=== PATIENT | male | born 1980 | race Caucasian/White ===

== ENCOUNTER 2016-11-10 09:32 | Observation (INO) ==
[2016-11-10] MEDS ORDERED: Aspirin 81 MG TAB.CHEW PO ONE (10:06)
--- NOTE | 2016-11-10 10:08 | Emergency Department Note ---
Disposition Clinical Impression: Chest pain Qualifiers: Chest pain type: unspecified Qualified Code(s): R07.9 - Chest pain, unspecified Disposition: Home, Self-Care Condition: Good Time of Disposition: 13:43 General Adult HPI - General Chief complaint: ED Chest Pain Stated complaint: Chest pain/ SOB Time Seen by Provider: 11/10/16 09:51 Source: patient Limitations: no limitations Nursing Notes Reviewed: Yes Vital Signs Reviewed: Yes - History of Present Illness HPI Narrative: Patient started having chest pain and he describes as sharp and of pressure to the left side of his chest this morning. It woke him from sleep. Shortness of breath with this. The pain does not radiate anywhere. Associated nausea or vomiting. Does have some mild lower extremity edema that has been going on for about a week. Pain Scale: 6 - Related Data Home Medications Medication Instructions Recorded Confirmed No Known Home Drugs 11/10/16 11/10/16 Allergies Allergy/AdvReac Type Severity Reaction Status Date / Time No Known Allergies Allergy Verified 11/10/16 09:33 All systems ED: reviewed and negative except as stated. Constitutional: Denies: fever, chills Cardiovascular: Reports: chest pain. Denies: palpitations, syncope Respiratory: Reports: dyspnea (Associated with the chest pain). Denies: cough Gastrointestinal: Denies: abdominal pain, nausea, vomiting, diarrhea, hematemesis, melena Genitourinary: Denies: urgency, dysuria, frequency Musculoskeletal: Denies: back pain, neck pain Integumentary: Denies: rash, abrasion Neurological: Denies: headache, weakness Past Medical History - Past Medical History Attestation: Yes The following information was validated with the patient. Source: patient Medical history: Reports: other Psychiatric history: Reports: no psych history - Social History Smoking Status: Never smoker Smokeless Tobacco Status: Yes Alcohol use: Reports: none Drug use: Reports: none Physical Exam - General Limitations: no limitations General appearance: alert, in no apparent distress - Head Head exam: atraumatic, normocephalic, normal inspection - Eye Eye exam: Present: normal appearance, PERRL, EOMI - ENT ENT exam: normal exam, normal oropharynx, mucous membranes moist - Neck Neck exam: Present: normal inspection, full ROM, trachea midline. Absent: tenderness, meningismus - Chest Chest inspection: Present: normal inspection, symmetric chest wall rise - Respiratory Respiratory exam: Present: normal lung sounds bilaterally. Absent: respiratory distress, accessory muscle use - Cardiovascular Cardiovascular exam: Present: regular rate, normal rhythm, normal heart sounds - Abdominal Exam Abdominal exam: Present: soft, Non-Tender, normal bowel sounds. Absent: tenderness, distention, guarding, rebound, rigidity, organomegaly - Extremities Exam Extremities exam: Present: normal inspection, full ROM, normal capillary refill , pedal edema (Mild to bilateral lower extremities.). Absent: tenderness - Back Exam Back exam: Present: normal inspection, full ROM, paraspinal tenderness (Lower lumbar spine.). Absent: CVA tenderness (R), CVA tenderness (L) - Neurological Exam Neurological exam: Present: alert, oriented X3 - Psychiatric Psychiatric exam: Present: normal affect, normal mood - Skin Skin exam: Present: warm, dry, intact, normal color. Absent: rash, cyanosis Course Course Narrative: Patient presenting to emergency department complaining of left-sided chest pain is sharp in nature that began this morning. He states it woke him from sleep. Also having associated shortness of breath and low back pain. He denies any nausea vomiting or diarrhea. States he does have high blood pressure and is chronically supposed be taking medication for this but does not. He only takes his medication when he "feels bad." He states his lower back started hurting him on Tuesday. This was 5 days ago. He thought that he had a urinary tract infection however the pain is still there. The pain gets worse whenever he takes a deep breath. Patient is an obese male resting in bed. He is smiling during exam. His lung sounds are clear heart sounds are normal his abdomen is soft and nontender. He denies any abdominal pain. He does not have any CVA tenderness on exam. He has some mild midline tenderness in his L3-L4 area. We will get a cardiac workup on palpation give him pain medication campos here. We will also provide him with aspirin. 7 nitroglycerin trial. He is agreeable to this. Patient states he has had a history of pericarditis and this feels similar. His EKG is normal. There are no ST elevations. - Reevaluation(s) Reevaluation #1: Patient's workup was unremarkable however patient's body habitus is large she has a history of pericarditis and his symptoms are very concerning for ACS. We will admit patient for further evaluation. D-dimer was normal. He had no EKG findings of ischemia at this time. Vital Signs Temperature 97.5 F L 11/10/16 09:33 Pulse Rate 78 11/10/16 09:33 Respiratory Rate 16 11/10/16 09:33 Blood Pressure 160/94 11/10/16 09:33 O2 Sat by Pulse Oximetry 97 11/10/16 09:33 Temperature 97.5 F L 11/10/16 09:33 Pulse Rate 76 11/10/16 11:37 Respiratory Rate 20 11/10/16 12:20 Blood Pressure 130/72 11/10/16 12:20 O2 Sat by Pulse Oximetry 98 11/10/16 11:37 Oxygen Delivery Oxygen Delivery Room Air Medical Decision Making - Medical Records Medical records reviewed: Yes I reviewed the patient's medical records. - Lab Data Lab results reviewed: Yes I reviewed the patient's lab results. Result diagrams: 11/10/16 10:20 11/10/16 10:20 Lab Results 11/10/16 11/10/16 11/10/16 Range/Units 10:20 10:20 10:20 WBC 6.4 (4.3-11.1) K/mcL RBC 4.97 (4.19-5.50) M/mcL Hgb 15.4 (12.9-16.9) g/dL Hct 45.6 (37.5-50.1) % MCV 91.8 (83.0-100.0) fL MCH 31.0 (28.0-33.3) pg MCHC 33.8 (31.6-35.5) g/dL RDW 12.3 (11.5-14.5) % Plt Count 190 (140-400) K/mcL MPV 10.7 (9.4-12.4) fL Immature Gran % 0.3 (0-4) % Seg Neutrophils % 52.1 % Lymphocytes % 32.7 % Monocytes % 10.0 % Eosinophils % 4.1 % Basophils % 0.8 % Neutrophils # 3.3 (1.6-8.9) K/mcL Lymphocytes # 2.1 (0.6-4.6) K/mcL Monocytes # 0.6 (0.0-1.3) K/mcL Eosinophils # 0.3 (0.0-0.6) K/mcL Basophils # 0.1 (0.0-0.2) K/mcL PT 13.0 H (9.4-12.1) Seconds INR 1.2 APTT 31.4 (26.0-36.0) Seconds D-Dimer 228 (0-500) ng/mLFEU Sodium 140 (136-145) mEq/L Potassium 4.5 (3.5-4.5) mEq/L Chloride 107 (98-109) mEq/L Carbon Dioxide 27 (19-29) mEq/L BUN 11 (8-26) mg/dL Creatinine 0.84 (0.72-1.25) mg/dL Est GFR ( Amer) > 60 (> 60) Est GFR (Non-Af Amer) > 60 (> 60) BUN/Creatinine Ratio 13 (6-26) Glucose 112 H (70-99) mg/dL Calculated Osmolality 290 (280-300) Calcium 9.4 (8.6-10.8) mg/dL Troponin I (0-0.03) ng/mL 11/10/16 Range/Units 10:20 WBC (4.3-11.1) K/mcL RBC (4.19-5.50) M/mcL Hgb (12.9-16.9) g/dL Hct (37.5-50.1) % MCV (83.0-100.0) fL MCH (28.0-33.3) pg MCHC (31.6-35.5) g/dL RDW (11.5-14.5) % Plt Count (140-400) K/mcL MPV (9.4-12.4) fL Immature Gran % (0-4) % Seg Neutrophils % % Lymphocytes % % Monocytes % % Eosinophils % % Basophils % % Neutrophils # (1.6-8.9) K/mcL Lymphocytes # (0.6-4.6) K/mcL Monocytes # (0.0-1.3) K/mcL Eosinophils # (0.0-0.6) K/mcL Basophils # (0.0-0.2) K/mcL PT (9.4-12.1) Seconds INR APTT (26.0-36.0) Seconds D-Dimer (0-500) ng/mLFEU Sodium (136-145) mEq/L Potassium (3.5-4.5) mEq/L Chloride (98-109) mEq/L Carbon Dioxide (19-29) mEq/L BUN (8-26) mg/dL Creatinine (0.72-1.25) mg/dL Est GFR ( Amer) (> 60) Est GFR (Non-Af Amer) (> 60) BUN/Creatinine Ratio (6-26) Glucose (70-99) mg/dL Calculated Osmolality (280-300) Calcium (8.6-10.8) mg/dL Troponin I 0.00 (0-0.03) ng/mL - Radiology Data Radiology results reviewed: Yes I reviewed the patient's radiology results. Chest X-Ray 11/10/16 10:06 IMPRESSION: No acute cardiopulmonary abnormality. D/ / Ashley Suresh MD / Ashley Suresh MD Interpreting Provider: Ashley Suresh MD - EKG Data EKG #1 EKG attestation: Yes I reviewed and interpreted this EKG. EKG results narrative: Normal sinus rhythm at a rate of 78. NH interval is 148. QRS duration is 87. QT is 353. QTC is 386. No signs of acute ischemia. No old to compare to. Attestation Statement - Attestation Attestation: I examined this patient and my medical decision-making was reviewed with the Resident Physician. I agree with the documented findings, disposition and treatment plan as described except to the extent set forth below. In summary 35 -year-old male with multiple risk factors and history of pericarditis presenting with atypical chest pain symptoms. He does have mild amounts of exertional dyspnea. Plan to admit to the hospital, EKG was normal, aspirin and nitroglycerin trial administered, bedside echocardiogram to rule out pericardial effusion. Patient be admitted.
[2016-11-10 10:36] LABS: Basophils # 0.1 K/mcL (0.0-0.2); Basophils % 0.8 %; Eosinophils # 0.3 K/mcL (0.0-0.6); Eosinophils % 4.1 %; Hematocrit 45.6 % (37.5-50.1); Hemoglobin 15.4 g/dL (12.9-16.9); Immature Granulocytes % 0.3 % (0-4); Lymphocytes # 2.1 K/mcL (0.6-4.6); Lymphocytes % 32.7 %; Mean Corpuscular HGB Conc 33.8 g/dL (31.6-35.5); Mean Corpuscular Volume 91.8 fL (83.0-100.0); Mean Platelet Volume 10.7 fL (9.4-12.4); Monocytes # 0.6 K/mcL (0.0-1.3); Neutrophils # 3.3 K/mcL (1.6-8.9); Platelet Count 190 K/mcL (140-400); Red Blood Count 4.97 M/mcL (4.19-5.50); Red Cell Distribution Width 12.3 % (11.5-14.5); Segmented Neutrophils % 52.1 %
[2016-11-10 10:41] LABS: INR 1.2
[2016-11-10 10:43] LABS: Activated Partial Thrombo Time 31.4 Seconds (26.0-36.0)
[2016-11-10 10:48] LABS: BUN/Creatinine Ratio 13 (6-26); Blood Urea Nitrogen 11 mg/dL (8-26); Calcium 9.4 mg/dL (8.6-10.8); Carbon Dioxide 27 mEq/L (19-29); Chloride 107 mEq/L (98-109); Glucose 112 mg/dL (70-99); Osmolality,Calculated 290 (280-300); Potassium 4.5 mEq/L (3.5-4.5); Sodium 140 mEq/L (136-145); eGFR For African Americans > 60 (> 60); eGFR For Non-African Americans > 60 (> 60)
[2016-11-10] MEDS ORDERED: *HR* Morphine 2 MG/ML SYRINGE IVP ONE (10:58)
[2016-11-10] MEDS ORDERED: Nitroglycerin 0.4 MG TAB.SUBL SL PRN (11:23)
[2016-11-10] MEDS ORDERED: Naloxone 0.4 MG/ML INJ IVP PRN (13:09)
[2016-11-10] MEDS ORDERED: Ondansetron 4 MG/2 ML VIAL IVP PRN (13:09)
[2016-11-10] MEDS ORDERED: *HR* Metoprolol 5 MG/5 ML VIAL IVP PRN (13:58)
--- NOTE | 2016-11-10 14:05 | Internal Med History&Physical ---
Date of Encounter: 11/10/16 Time of Encounter: 13:59 Assessment and Plan (1) Chest pain Current visit: Yes Status: Acute Given family history and clinical presentation, will admit to rule out ACS serial TNI f/u 2D echo nitroglycerin SL prn chest pain morphine 2mg IV q4h prn severe pain ASA, Statin O2 supplementation as needed nuclear stress test in am consider cardiology evaluation if nuclear stress test or echo findings are abnormal EKG: NSR at 78bpm monitor BP, Lopressor 5mg IV q6h prn SBP>140 tele monitoring NPO after midnight Med compliance counseling provided Qualifiers: Chest pain type: unspecified Qualified Code(s): R07.9 - Chest pain, unspecified (2) DVT prophylaxis Current visit: Yes Status: Acute Heparin SQ (3) Tobacco abuse Current visit: Yes Status: Chronic tobacco cessation counseling provided patient not ready to quit refused nicotine replacement therapy (4) Morbid obesity with BMI of 50.0-59.9, adult Current visit: Yes Status: Chronic (5) Medical non-compliance Current visit: Yes Status: Chronic Internal Medicine - H&P: HPI Chief complaint: Chest pain Admitted From: Home Plans for Post Hospital Care: Home History of present illness: Mr. Carlos is a 35 year old male with PMH of pericarditis, morbid obesity presents to the ER for evaluation of chest pain. Patient describes the chest pain as localized substernal pressure like pain, as if someone was sitting on his chest, associated with shortness of breath. He states he was awoken from sleep at 4am due to the pain. He states taking a deep breath worsened the pain and nothing he did at home helped with the pain. Reports of having pericarditis a few years ago and states this pain was far worst than his pericarditis episode. States he was prescribed a few medications but has not been taking any medications for the last four months because he felt well. He reports of strong cardiac family history, with his dad having his first AR at age 40. Upon arrival to the ER, he received IV morphine which alleviated the chest pain. At this time, he is resting comfortably in bed and states his pain is almost resolved. He is eating lunch and denies any headache, sob, abd pain, n/v, fever , or chills at this time. Social history: chews tobacco Code status: Full code Past Med Surg Social Fam HX - Past Medical History Medical history: other Psychiatric history: no psych history - Past Surgical History Surgical History: appendectomy - Social History Smoking Status: Never smoker Smokeless Tobacco Status: Yes Alcohol use: none Drug use: none - Family History Father Hx Family Cardiac Disorders: Yes (Heart disease) Internal Medicine - H&P: Meds No Known Home Drugs 11/10/16 [History] 3 Allergy/AdvReac Type Severity Reaction Status Date / Time No Known Allergies Allergy Verified 11/10/16 09:33 All Systems PM: A 10-system review of systems was performed and is negative for pertinent findings except as documented above in the HPI. - Constitutional Constitutional: as per HPI - Constitutional Vitals: Temp Pulse Resp BP Pulse Ox 97.5 F L 76 20 130/72 98 11/10/16 09:33 11/10/16 11:37 11/10/16 12:20 11/10/16 12:20 11/10/16 11:37 General appearance: Present: cooperative, A&O X 3, morbidly obese, no acute distress, answers questions appropriately - Head Head exam: Present: atraumatic, normocephalic - Eye Eye exam: Present: conjuntiva pink, sclera anicteric - Respiratory Respiratory exam: Present: CTAB. Absent: accessory muscle use, rales, rhonchi, wheezes - Cardiovascular Cardiovascular exam: Present: RRR, +S1, +S2. Absent: diastolic murmur, gallop, rubs, systolic murmur - GI/Abdominal GI/Abdominal exam: Present: normal bowel sounds, soft, no peritoneal signs. Absent: distended, tenderness - Extremities Exam Extremities exam: Present: pedal edema, warm, radial pulses palpable and symmetrical. Absent: calf tenderness Internal Med - H&P Results - Labs CBC & Chem 7: 11/10/16 10:20 11/10/16 10:20
[2016-11-10] MEDS: *HR* Morphine 2 MG/ML SYRINGE IVP PRN ×2 (17:35→22:24)
[2016-11-10] MEDS: *HR* Heparin 5,000 UNIT/ML VIAL SQ SCH (22:25)
[2016-11-11] MEDS: *HR* Heparin 5,000 UNIT/ML VIAL SQ SCH ×3 (05:22→21:08)
[2016-11-11] MEDS ORDERED: Regadenoson 0.4 MG/5 ML SYRINGE IVP ONE (05:43)
[2016-11-11 06:10] LABS: Basophils # 0.1 K/mcL (0.0-0.2); Basophils % 0.7 %; Eosinophils # 0.3 K/mcL (0.0-0.6); Eosinophils % 4.4 %; Hematocrit 45.6 % (37.5-50.1); Hemoglobin 14.9 g/dL (12.9-16.9); Immature Granulocytes % 0.3 % (0-4); Lymphocytes # 2.6 K/mcL (0.6-4.6); Lymphocytes % 36.1 %; Mean Corpuscular HGB Conc 32.7 g/dL (31.6-35.5); Mean Corpuscular Hemoglobin 29.9 pg (28.0-33.3); Mean Corpuscular Volume 91.4 fL (83.0-100.0); Monocytes # 0.7 K/mcL (0.0-1.3); Monocytes % 9.4 %; Neutrophils # 3.6 K/mcL (1.6-8.9); Platelet Count 188 K/mcL (140-400); Red Blood Count 4.99 M/mcL (4.19-5.50); Red Cell Distribution Width 12.3 % (11.5-14.5); Segmented Neutrophils % 49.1 %
[2016-11-11 06:30] LABS: BUN/Creatinine Ratio 13 (6-26); Blood Urea Nitrogen 11 mg/dL (8-26); Calcium 8.9 mg/dL (8.6-10.8); Carbon Dioxide 29 mEq/L (19-29); Chloride 100 mEq/L (98-109); Chol/HDL Ratio 7.9 (0-4.9); Cholesterol 198 mg/dL (< 200); Glucose 110 mg/dL (70-99); HDL Cholesterol 25 mg/dL (40-59); LDL Cholesterol,Calculated 136 mg/dL (0-99); Magnesium 1.9 mg/dL (1.6-2.6); Osmolality,Calculated 288 (280-300); Phosphorous 4.3 mg/dL (2.3-4.7); Potassium 4.4 mEq/L (3.5-4.5); Sodium 139 mEq/L (136-145); Triglycerides 187 mg/dL (< 150); eGFR For African Americans > 60 (> 60); eGFR For Non-African Americans > 60 (> 60)
--- NOTE | 2016-11-11 10:20 | Internal Med Progress Note ---
Date of Encounter: 11/11/16 Time of Encounter: 10:17 - Assessment and plan (1) Chest pain Current Visit: Yes Status: Acute Assessment and plan: So far negative troponin high risk for ACS due to FH and Morbid obesity will f/u on Stress test 2D Echo - P No acute EKG changes cont ASA and Statin Will start him on Low dose B manoj his BP allows Counseled to quit smoking Qualifiers: Chest pain type: unspecified Qualified Code(s): R07.9 - Chest pain, unspecified (2) Morbid obesity with BMI of 50.0-59.9, adult Current Visit: Yes Status: Chronic Assessment and plan: Counseled to loose weight he might have sleep apnea too recommend to go for out pt sleep studies (3) HLD (hyperlipidemia) Current Visit: Yes Status: Acute Assessment and plan: Reviewed FLP - Elevated LDL Started him Lipitor Qualifiers: Qualified Code(s): E78.5 - Hyperlipidemia, unspecified (4) Tobacco abuse Current Visit: Yes Status: Chronic Assessment and plan: Counseled to quit smoking (5) DVT prophylaxis Current Visit: Yes Status: Acute Assessment and plan: on SQ heparin - Subjective Interval history: Mr. Carlos is a 35 year old male with PMH of pericarditis, morbid obesity presents to the ER for evaluation of chest pain. Patient describes the chest pain as localized substernal pressure like pain, as if someone was sitting on his chest, associated with shortness of breath. He states he was awoken from sleep at 4am due to the pain. Pt denied any more CP now. Denied any SOB. Denied any new complaints. - Constitutional Vitals: Temp Pulse Resp BP Pulse Ox 97.8 F 78 20 118/77 93 11/10/16 23:52 11/10/16 23:52 11/10/16 23:52 11/10/16 23:52 11/10/16 23:52 General appearance: Present: cooperative, A&O X 3, morbidly obese, no acute distress, answers questions appropriately - Head Head exam: Present: atraumatic, normal inspection - Respiratory Respiratory exam: Present: decreased breath sounds, wheezes. Absent: rales, respiratory distress, rhonchi - Cardiovascular Cardiovascular exam: Present: RRR, +S1, +S2. Absent: diastolic murmur, gallop, rubs, systolic murmur - GI/Abdominal GI/Abdominal exam: Present: normal bowel sounds, soft, no peritoneal signs. Absent: distended, tenderness - Extremities Exam Extremities exam: Absent: calf tenderness, pedal edema, tenderness - Psychiatric Psychiatric exam: Present: normal affect, normal mood Internal Medicine: Result - Labs CBC & Chem 7: 11/11/16 05:26 11/11/16 05:26 Labs: Short CBC 11/11/16 Range/Units 05:26 WBC 7.3 (4.3-11.1) K/mcL Hgb 14.9 (12.9-16.9) g/dL Hct 45.6 (37.5-50.1) % Plt Count 188 (140-400) K/mcL Neutrophils # 3.6 (1.6-8.9) K/mcL BMP 11/11/16 05:26 Sodium 139 Potassium 4.4 Chloride 100 Carbon Dioxide 29 BUN 11 Creatinine 0.85 Glucose 110 H Calcium 8.9 Cardiac Enzymes 11/10/16 11/10/16 11/11/16 Range/Units 13:57 19:03 01:05 Troponin I 0.01 0.00 0.01 (0-0.03) ng/mL - ABG Interpretation ABG results: PT/INR, D-dimer PT 13.0 Seconds (9.4-12.1) H 11/10/16 10:20 D-Dimer 228 ng/mLFEU (0-500) 11/10/16 10:20 Consult Discharge Plan - Plan Referrals: Geovanny Carroll MD [Primary Care Provider] -
[2016-11-11] MEDS: Aspirin 81 MG TAB.CHEW PO SCH (10:53)
[2016-11-11] MEDS: *HR* Morphine 2 MG/ML SYRINGE IVP PRN ×3 (11:12→21:05)
--- NOTE | 2016-11-11 18:12 | Electrocardiograph Report ---
[address] [address] Test Date: 2016-11-10 Pat Name: Armen Carlos Department: 104 Room: 3B Gender: M Ux Specialist: MSC : 1980 Requested By: Soha Florentino Order Number: [id number] Reading MD: Denita Rizzo Measurements Intervals [place] Rate: 78 P: 23 OK: 148 QRS: 48 QRSD: 87 T: 56 QT: 353 QTc: 386 Interpretive Statements SINUS RHYTHM EARLY REPOLARIZATION Electronically Signed On 11-11-2016 18:10:23 EDT by Denita Rizzo
[2016-11-12] MEDS: *HR* Heparin 5,000 UNIT/ML VIAL SQ SCH ×2 (08:26→13:44)
[2016-11-12] MEDS: Aspirin 81 MG TAB.CHEW PO SCH (08:27)
[2016-11-12] MEDS: *HR* Morphine 2 MG/ML SYRINGE IVP PRN (08:27)
--- NOTE | 2016-11-12 09:45 | Nuclear Medicine Stress Report ---
Regadenoson Nuclear 2 day Name: Armen Carlos Date of Study: 11/11/2016 Date: 1980 Ht: 68.0 in Medical Record#: [id number] Age: 35 Wt: 346.0 lb Gender: Male Order #: [id number] Location: [facility] Room: [facility] Supervising Provider: Jeanine Moreno CNP Reading Physician: Denita Rizzo DO Ordering Physician: Berta Aguilar CNP Primary Care Physician: None Stress Technologist: Claire Mendieta CAPACITY PLANNING ENGINEER, CCT Special Distribution Clerk: Marvel Tamayo Indications: Chest Pain Impression: Perfusion imaging was negative for ischemia or infarct. Pharmacologic ECG was negative for ischemia at the level of heart rate achieved. Gated EF = 68%. History: Hypertension Stress Test Summary: Stress Test Type: Pharmacologic Regadenoson 0.4mg/5ml given IV Baseline Information: Initial Heart Rate: 79 Blood Pressure: 128/94 Stress Information: Test Terminated Due to (primary): As per protocol Maximum Blood Pressure: 122/84 Maximum Heart Rate: 105 Percent Maximum Heart Rate Achieved: 57 Double Product: 30330 METS Reached: 1 Symptoms: Shortness of breath, No chest symptoms Nuclear Summary: SPECT myocardial perfusion imaging using Tc99m Sestamibi given intravenously was performed at rest and following cardiac stress testing. The resting images were obtained following initial dose of 35.8 mCi. Following stress an additional dose of 35.2 mCi was given at peak exercise or 30 seconds post regadenoson infusion. Medication Given: Time Medication Dose Units Route Findings: Stress Note * Resting ECG demonstrated normal sinus rhythm with early repolarization. * Pharmacologic stress ECG is negative for ischemia at level of heart rate achieved. * No arrhythmias were noted during stress. * Patient had no chest pain during stress. Hemodynamic responses * Normal hemodynamic responses to pharmacologic stress. Study Quality * Study quality was fair. Gated EF % * Gated EF = 68%. Left Ventricle * The left ventricle is not dilated. TID * No evidence of transient ischemic dilatation. Lung Uptake * There is no evidence of increase lung uptake. NORMALS * Normal wall motion. PERFUSION * There is a small size fixed basal inferior wall defect. Findings consistent with artifact. * Other segments demonstrate normal rest and stress radiotracer uptake. Updated by Denita Rizzo on 11/12/2016 9:39:47 AM electronically signed on 11/12/2016 9:40:52 AM with status of Final
[2016-11-12 11:00] VITALS: BP 129/77
--- NOTE | 2016-11-12 13:58 | Discharge Summary ---
Date of Encounter: 11/12/16 Time of Encounter: 13:54 - Discharge Diagnosis (1) Chest pain Priority: Primary Status: Ruled-out Comments: atypical chest pain - mostly due to costo chondritis Qualifiers: Chest pain type: unspecified Qualified Code(s): R07.9 - Chest pain, unspecified (2) Morbid obesity with BMI of 50.0-59.9, adult Priority: Secondary Status: Chronic (3) HLD (hyperlipidemia) Priority: Secondary Status: Acute Qualifiers: Qualified Code(s): E78.5 - Hyperlipidemia, unspecified (4) Tobacco abuse Priority: Secondary Status: Chronic - Discharge Medications Prescriptions: Naproxen [Naprosyn] 500 mg PO BID PRN #15 tablet PRN Reason: Pain Home Medications: Naproxen [Naprosyn] 500 mg PO BID PRN #15 tablet 11/12/16 [Rx] Allergies/Adverse Reactions: 3 Allergy/AdvReac Type Severity Reaction Status Date / Time No Known Allergies Allergy Verified 11/10/16 09:33 Procedures/tests Complete & Pending: Procedures Performed prior 72 hours Category Date Time Status NM jeff perf SPECT multi [NM] Routine Exams 11/10/16 13:16 Taken EV echocardiogram Stat Y 11/10/16 13:15 Completed SP pharm nuclear stress Routine Y 11/11/16 07:00 Completed Date of admission: 11/10/16 12:10 Primary care physician: Geovanny Carroll MD - Patient Status Disposition: Home, Self-Care Condition: Good Overall status at discharge: patient is back to baseline - Discharge Instructions Follow Up With: Geovanny Carroll MD [Primary Care Provider] - Additional Instructions: Need to f/u with PCP in one week Need to go for out pt sleep studies for your sleep apnea problem - Diet and Activity Activity: increase activity as tolerated Diet: low salt diet Hospital course: Mr. Carlos is a 35 year old male with PMH of pericarditis, morbid obesity presents to the ER for evaluation of chest pain. Patient describes the chest pain as localized substernal pressure like pain, as if someone was sitting on his chest, associated with shortness of breath. He states he was awoken from sleep at 4am due to the pain. Pt was admitted in the hospital and placed him on inspector wreath. Checked his serial troponin which were negative. He did go for 2 D Echo which did not show any acute abnormalities. His stress test came back negative for any ischemia. His CP seems to be due to costochondritis. Recommend to take Naproxen PRN for pain. Also noticed he does have slightly elevated LDL at 137, offered medication, but pt wants to try diet modification and life style changes. Also noticed he does have ODILON, recommend to go for out pt sleep studies. - Time Spent with Patient Total time spent providing and/or coordinating discharge services: - Constitutional Vitals: Temp Pulse Resp BP Pulse Ox 97.6 F 94 15 129/77 95 11/12/16 10:59 11/12/16 10:59 11/12/16 10:59 11/12/16 10:59 11/12/16 10:59 General appearance: Present: cooperative, A&O X 3, morbidly obese, no acute distress, answers questions appropriately - Head Head exam: Present: atraumatic, normal inspection - Respiratory Respiratory exam: Present: decreased breath sounds, wheezes. Absent: rales, respiratory distress, rhonchi - Cardiovascular Cardiovascular exam: Present: RRR, +S1, +S2 Additional comments: Reproducible CP - GI/Abdominal GI/Abdominal exam: Present: normal bowel sounds, soft. Absent: rebound, rigid, tenderness - Extremities Exam Extremities exam: Absent: calf tenderness, pedal edema, tenderness - Psychiatric Psychiatric exam: Present: normal affect, normal mood
== END 2016-11-12 14:32 | disposition home or self-care (01) ==
LOC: 3BNU 09:32 → EMEROO 09:32 → 3BNU 12:50
PROVIDERS: ADMIT Internal Medicine; ATTEND Nurse Practitioner Family